=== PATIENT | male | born 1950 | race Caucasian/White ===

== ENCOUNTER 2016-08-15 04:41 | Inpatient (IN) | payer SELFPAY ==
[~2016-08-15] VITALS: Ht 182.9 cm; Wt 94.5 kg
[2016-08-15] VITALS (11 sets, daily range): BP systolic 111–161; BP diastolic 69–94; PULSE 55–64; RESP 16–20; TEMP 96.5–99.1; O2SAT 92–100
[~2016-08-15 04:41] MED LIST: CYCL-36 PO; PRED20 PO; Z.0.NO CURRENT MEDS
[2016-08-15] MEDS ORDERED: HYDROmorphone HCL PF 1 MG/ML VIAL IV PUSH ONE (04:45)
[2016-08-15] MEDS ORDERED: PANTOPRAZOLE SODIUM 40 MG VIAL IV PUSH ONE (04:45)
[2016-08-15] MEDS ORDERED: SODIUM CHLORIDE 0.9% FLUSH 10 ML FLUSH IV FLUSH PRN ×2 (04:45→08:00)
[2016-08-15] MEDS ORDERED: SODIUM CHLOR 0.9% 1000 ML INJ 1,000 ML IV SCH (04:45)
[2016-08-15] MEDS ORDERED: ONDANSETRON HCL 4 MG/2 ML VIAL IV PUSH ONE (04:45)
--- NOTE | 2016-08-15 05:14 | RADHPO ---
EXAM DATE/TIME: 08/15/2016 04:54 [facility] COMPARISON: No previous studies available for comparison. INDICATIONS : Chest pain. MEDICAL HISTORY : None. SURGICAL HISTORY : None. ENCOUNTER: Initial ACUITY: 1 day PAIN SCORE: 7/10 LOCATION: Bilateral chest FINDINGS: A single view of the chest demonstrates the lungs to be symmetrically aerated without evidence of mas s, infiltrate or effusion. The cardiomediastinal contours are unremarkable. Osseous structures are intact. CONCLUSION: Normal examination. Charlie Toth MD on August 15, 2016 at 5:12 Board Certified Radiologist. This report was verified electronically.
[2016-08-15 05:20] LABS: CHLORIDE 105 MEQ/L (98-107); POTASSIUM 3.3 MEQ/L (3.5-5.1); SODIUM (NA) 139 MEQ/L (136-145)
[2016-08-15 05:23] LABS: AUTOMATED NEUTROPHIL # 5.9 TH/MM3 (1.8-7.7); BASOPHIL % 0.5 % (0.0-2.0); EOSINOPHIL # 0.2 TH/MM3 (0-0.4); EOSINOPHIL % 2.4 % (0.0-4.0); HEMATOCRIT 47.8 % (39.0-51.0); HEMO FLAGS DIFF FINAL; LYMPH % 31.3 % (9.0-44.0); LYMPHOCYTE # 3.1 TH/MM3 (1.0-4.8); MEAN CELL VOLUME 92.4 FL (80.0-100.0); MEAN CORPUSCULAR HEMOGLOBIN 30.3 PG (27.0-34.0); MEAN CORPUSCULAR HGB CONC 32.8 % (32.0-36.0); MONO % 6.7 % (0.0-8.0); NEUT % 59.1 % (16.0-70.0); PLATELET COUNT 379 TH/MM3 (150-450); RED BLOOD COUNT 5.17 MIL/MM3 (4.50-5.90); RED CELL DISTRIBUTION WIDTH 13.4 % (11.6-17.2); WHITE BLOOD COUNT 9.9 TH/MM3 (4.0-11.0)
[2016-08-15 05:24] LABS: ANION GAP 7 MEQ/L (5-15); BICARBONATE 26.7 MEQ/L (21.0-32.0)
[2016-08-15 05:25] LABS: BLOOD UREA NITROGEN 15 MG/DL (7-18); MAGNESIUM 2.1 MG/DL (1.5-2.5)
[2016-08-15 05:27] LABS: ALT (GPT) 31 U/L (12-78); AST (GOT) 20 U/L (15-37)
[2016-08-15 05:28] LABS: GLOMERULAR FILTRATION RATE 67 ML/MIN (>89)
[2016-08-15 05:29] LABS: TOTAL BILIRUBIN ADULT 0.4 MG/DL (0.2-1.0)
[2016-08-15 05:30] LABS: ALKALINE PHOSPHATASE 82 U/L (45-117)
--- NOTE | 2016-08-15 06:06 | PD ---
HPI Chief Complaint: Abdominal Pain Time Seen by Provider: 04:45 Travel History International Travel<30 days: No Contact w/Intl Traveler<30days: No Traveled to known affect area: No History of Present Illness HPI 66-year-old male presents to the emergency department for complaint of severe abdominal pain. Patient's had nausea and vomiting with hematemesis and melena. Patient states she's had symptoms like this for some time but tonight it became worse. Patient has not seen a physician in numerous years. Patient denies known history of CAD hypertension dyslipidemia or diabetes. Patient admits to tobacco use. Pain he states is bandlike across the upper abdomen. Patient states overall symptoms have been present for approximately 3 days. Pain became worse tonight. Patient states this duration is longer than his prior episodes. Patient is not able to associate exacerbating or alleviating factors. Patient denies any known dietary indiscretion, well water ingestion, or foreign travel. Patient rates pain 10 over 10 intensity. PFSH Past Medical History Narrative Medical Review of past medical history kidney stones, no surgeries, tobacco use nursing notes reviewed Diminished Hearing: No Kidney Stones: Yes Influenza Vaccination: No Social History Alcohol Use: No Tobacco Use: Yes (2ppd) Substance Use: No Allergies-Medications (Allergen,Severity, Reaction): Coded Allergies: No Known Allergies (Verified , 08/15/16) Reported Meds & Prescriptions Reported Meds & Active Scripts Active Flexeril (Cyclobenzaprine HCl) 10 Mg Tab 10 Mg PO Q8HPRN Deltasone (Prednisone) 20 Mg Tab 20 Mg PO BID Reported No Current Meds (Miscellaneous Medication) Misc Review of Systems Except as stated in HPI: all other systems reviewed are Neg General / Constitutional: No: Fever, Chills HENT: No: Congestion Cardiovascular: No: Chest Pain or Discomfort, Diaphoresis, Syncope, Dyspnea on exertion Respiratory: No: Shortness of Breath Gastrointestinal: Positive: Nausea, Vomiting, Diarrhea, Abdominal Pain, Hematemesis, Hematochezia Genitourinary: No: Dysuria, Flank Pain Musculoskeletal: No: Myalgias, Arthralgias Skin: No Rash Neurologic: No: Weakness, Dizziness, Syncope, Focal Abnormalities, Coordination Problem Psychiatric: No: Anxiety Hematologic/Lymphatic: No: Lymph Node Enlargement Physical Exam Narrative GENERAL: Well-developed well-nourished male in obvious discomfort no respiratory distress; GCS 15 SKIN: Warm and dry. HEAD: Normocephalic. EYES: No scleral icterus. No injection or drainage. NECK: Supple, trachea midline. No JVD or lymphadenopathy. CARDIOVASCULAR: Regular rate and rhythm without murmurs, gallops, or rubs. RESPIRATORY: Breath sounds equal bilaterally. No accessory muscle use. GASTROINTESTINAL: Abdomen soft, right upper quadrant tenderness to palpation without guarding or rebound, nondistended. MUSCULOSKELETAL: No cyanosis, or edema. BACK: Nontender without obvious deformity. No CVA tenderness. Data Data Last Documented VS Vital Signs Date Time Temp Pulse Resp B/P Pulse Ox O2 Delivery O2 Flow Rate FiO2 08/15/16 06:48 59 16 140/79 94 Room Air 08/15/16 05:00 97.6 Orders Complete Blood Count With Diff (08/15/16 04:45) Comprehensive Metabolic Panel (08/15/16 04:45) Lipase (08/15/16 04:45) Lactic Acid (08/15/16 04:45) Prothrombin Time / Inr (Pt) (08/15/16 04:45) Act Partial Throm Time (Ptt) (08/15/16 04:45) Urinalysis - C+S If Indicated (08/15/16 04:45) Ct Abd/Pel W Iv Contrast(Rout) (08/15/16 04:45) Iv Access Insert/Monitor (08/15/16 04:45) Ecg Monitoring (08/15/16 04:45) Oximetry (08/15/16 04:45) Sodium Chloride 0.9% Flush (Ns Flush) (08/15/16 04:45) Electrocardiogram (08/15/16 04:45) Chest, Single Ap (08/15/16 04:45) Ondansetron Inj (Zofran Inj) (08/15/16 04:45) Hydromorphone Pf Inj (Dilaudid Pf Inj) (08/15/16 04:45) Sodium Chlor 0.9% 1000 Ml Inj (Ns 1000 M (08/15/16 04:45) Troponin I (08/15/16 04:45) Magnesium (Mg) (08/15/16 04:45) Pantoprazole Inj (Protonix Inj) (08/15/16 04:45) Type And Screen (08/15/16 04:45) Iohexol 350 Inj (Omnipaque 350 Inj) (08/15/16 06:27) Us Abdomen Gallbladder (08/15/16 ) Piperacil-Tazo 3.375 Gm Premix (Zosyn 3. (08/15/16 07:30) NPO (08/15/16 07:30) Admit Order (Ed Use Only) (08/15/16 ) ^ Saline Lock (08/15/16 07:42) Resp Oxygen Mateusz C Titrat 1-4 L (08/15/16 ) Notify Dr: Other (08/15/16 07:42) Sodium Chloride 0.9% Flush (Ns Flush) (08/15/16 09:00) Sodium Chloride 0.9% Flush (Ns Flush) (08/15/16 07:45) Labs Laboratory Tests Test 08/15/16 08/15/16 04:47 06:00 White Blood Count 9.9 TH/MM3 Red Blood Count 5.17 MIL/MM3 Hemoglobin 15.7 GM/DL Hematocrit 47.8 % Mean Corpuscular Volume 92.4 FL Mean Corpuscular Hemoglobin 30.3 PG Mean Corpuscular Hemoglobin 32.8 % Concent Red Cell Distribution Width 13.4 % Platelet Count 379 TH/MM3 Mean Platelet Volume 8.0 FL Neutrophils (%) (Auto) 59.1 % Lymphocytes (%) (Auto) 31.3 % Monocytes (%) (Auto) 6.7 % Eosinophils (%) (Auto) 2.4 % Basophils (%) (Auto) 0.5 % Neutrophils # (Auto) 5.9 TH/MM3 Lymphocytes # (Auto) 3.1 TH/MM3 Monocytes # (Auto) 0.7 TH/MM3 Eosinophils # (Auto) 0.2 TH/MM3 Basophils # (Auto) 0.0 TH/MM3 CBC Comment DIFF FINAL Differential Comment Prothrombin Time 10.7 SEC Prothromb Time International 1.0 RATIO Ratio Activated Partial 29.4 SEC Thromboplast Time Sodium Level 139 MEQ/L Potassium Level 3.3 MEQ/L Chloride Level 105 MEQ/L Carbon Dioxide Level 26.7 MEQ/L Anion Gap 7 MEQ/L Blood Urea Nitrogen 15 MG/DL Creatinine 1.10 MG/DL Estimat Glomerular Filtration 67 ML/MIN Rate Random Glucose 108 MG/DL Lactic Acid Level 1.5 mmol/L Calcium Level 9.7 MG/DL Magnesium Level 2.1 MG/DL Total Bilirubin 0.4 MG/DL Aspartate Amino Transf 20 U/L (AST/SGOT) Alanine Aminotransferase 31 U/L (ALT/SGPT) Alkaline Phosphatase 82 U/L Troponin I LESS THAN 0.02 NG/ML Total Protein 7.7 GM/DL Albumin 4.0 GM/DL Lipase 124 U/L Urine Color YELLOW Urine Turbidity CLEAR Urine pH 5.5 Urine Specific [place] 1.027 Urine Protein NEG mg/dL Urine Glucose (UA) NEG mg/dL Urine Ketones NEG mg/dL Urine Occult Blood NEG Urine Nitrite NEG Urine Bilirubin NEG Urine Leukocyte Esterase NEG Urine RBC 0-3 /hpf Urine WBC 0-2 /hpf Urine Squamous Epithelial 0-5 /hpf Cells Urine Amorphous Sediment MOD Urine Mucus MOD /lpf Microscopic Urinalysis Comment CULT NOT INDICATED MDM Medical Decision Making Medical Screen Exam Complete: Yes Emergency Medical Condition: Yes Medical Record Reviewed: Yes Interpretation(s) CBC & BMP Diagram 08/15/16 04:47 Vital Signs Date Time Temp Pulse Resp B/P Pulse Ox O2 Delivery O2 Flow Rate FiO2 08/15/16 05:37 18 08/15/16 05:13 64 20 100 Room Air 08/15/16 05:00 97.6 63 20 161/81 99 08/15/16 04:55 20 08/15/16 04:54 97.6 63 20 161/80 99 Troponin I less than 0.02, not elevated Lactic acid 1.5, not elevated Differential Diagnosis Abdominal pain, ACS, ME, pancreatitis, biliary colic, gastroenteritis, ischemic colitis, abdominal ache whenever aneurysm, diverticulitis, renal colic Narrative Course IV access obtained specimens collected and sent for resulting EKG performed rate [address] elevation or injury pattern change noted; patient administered maintenance IV fluids Zofran 4 mg IV and Dilaudid 1 mg IV Lab values resulted lactic acid is 1.5, not elevated CBC is automated differential is normal metabolic panel was remarkable for mild hypokalemia of 3.3 but LFTs and lipase values are normal range as was renal function; troponin I is less than 0.02 At 6 AM patient has not produced urine and CT abdomen and pelvis is pending Rectal exam performed by nv normal sphincter tone streaks of red blood on exam glove and multilobulated mass in the rectal vault; Hemoccult testing is positive for blood CT abdomen and pelvis reveals no acute intra-abdominal or pelvic abnormality other than some mild gallbladder wall thickening without stranding or evidence of ductal dilatation or obstruction and some diverticulosis; patient returns from CT and on repeat assessment has some mild tenderness to the right upper quadrant will order ultrasound to confirm possible stone or ductal dilatation versus biliary colic also concerning for this patient is following up blood as well as red blood per rectum and on rectal exam does have Hemoccult-positive stool/mucus as well as what appears to be a friable lobulated mass in the rectal vault requiring further evaluation. Patient is aware of plan to admit the patient's case has been discussed with on- call [facility] for OBs admission [facility] Point of Care Internal Pos. & Neg. Controls: Passed Fecal Specimen Occult Blood: Positive Physician Communication Physician Communication discussed with Dr Vanegas --23 h obs Diagnosis Primary Impression: Abdominal pain Qualified Code: R10.10 - Pain of upper abdomen Additional Impressions: Rectal mass GI bleed Qualified Code: K92.2 - Gastrointestinal hemorrhage, unspecified gastrointestinal hemorrhage type Admitting Information Admitting Physician Requests: Observation Elen Thomas MD Aug 15, 2016 06:06
[2016-08-15 06:07] LABS: APTT (PATIENT) 29.4 SEC (24.3-30.1); PROTHROMBIN TIME - PATIENT 10.7 SEC (9.8-11.6)
[2016-08-15 06:19] LABS: BLOOD, URINE NEG (NEG); GLUCOSE,URINE NEG (NEG); KETONE, URINE NEG (NEG); NITRITE,URINE NEG (NEG); PH, URINE 5.5 (5.0-8.5)
[2016-08-15] MEDS ORDERED: IOHEXOL 350 MG/ML 10 ML VIAL (for RAD DIAG) IV ONE (06:27)
[2016-08-15 06:31] LABS: URINE COLOR YELLOW (YELLW/STRAW)
[2016-08-15 06:32] LABS: MUCUS URINE MOD /lpf (OCC)
[2016-08-15 06:34] LABS: RBC, URINE 0-3 /hpf (0-3); SQUAMOUS EPITHELIAL CELL URINE 0-5 /hpf (0-5)
[2016-08-15 06:35] LABS: COMMENT (UR) CULT NOT INDICATED; CULTURE IF INDICATED CULT NOT INDICATED; WBC, URINE 0-2 /hpf (0-5)
--- NOTE | 2016-08-15 06:38 | RADHPO ---
EXAM DATE/TIME: 08/15/2016 06:07 [facility] COMPARISON: No previous studies available for comparison. INDICATIONS : Abdominal pain for three days. Evaluate for rectal mass. IV CONTRAST: 100 cc Omnipaque 350 (iohexol) IV ORAL CONTRAST: No oral contrast ingested. RADIATION DOSE: 16.60 CTDIvol (mGy) MEDICAL HISTORY : Renal calculi. SURGICAL HISTORY : None. ENCOUNTER: Initial ACUITY: 3 days PAIN SCALE: 10/10 LOCATION: Bilateral upper quadrant TECHNIQUE: Volumetric scanning of the abdomen and pelvis was performed. Using automated exposure control and ad justment of the mA and/or kV according to patient size, radiation dose was kept as low as reasonably achievable to obtain optimal diagnostic quality images. FINDINGS: LOWER LUNGS: Mild atelectasis both lower lobes posteriorly. LIVER: Homogeneous density without lesion. There is no dilation of the biliary tree. No calcified gallston es but the wall the gallbladder is borderline thickened. SPLEEN: Normal size without lesion. PANCREAS: Within normal limits. KIDNEYS: Normal in size and shape. There is no mass, or hydronephrosis. Numerous renal stones are identified ADRENAL GLANDS: Within normal limits. VASCULAR: There is no aortic aneurysm. BOWEL/MESENTERY: The stomach, small bowel, and colon demonstrate no acute abnormality. There is no free intraperitone al air or fluid. Diverticulosis of the colon ABDOMINAL WALL: Within normal limits. In the left posterior lateral flank there is a low density collection within th e subcutaneous fat measuring 3.3 x 2.4 cm likely large sebaceous cyst RETROPERITONEUM: There is no lymphadenopathy. BLADDER: No wall thickening or mass. REPRODUCTIVE: Within normal limits. INGUINAL: There is no lymphadenopathy or hernia. MUSCULOSKELETAL: Within normal limits for patient age. CONCLUSION: Stones within each kidney. Diverticulosis of the colon. Some gallbladder wall thickening without any definite signs of surrounding inflammation. Charlie Toth MD on August 15, 2016 at 6:34 Board Certified Radiologist. This report was verified electronically.
[2016-08-15] MEDS ORDERED: PIPERACIL-TAZO 3.375 GM PREMIX 50 ML IV ONE (07:30)
[2016-08-15] MEDS ORDERED: SODIUM CHLORIDE 0.9% FLUSH 10 ML FLUSH IVF PRN (07:45)
[2016-08-15] MEDS ORDERED: BISACODYL 10 MG SUPP RECTAL PRN (08:00)
[2016-08-15] MEDS ORDERED: SODIUM CHLOR 0.45% 1000 ML INJ 1,000 ML IV SCH (08:00)
[2016-08-15] MEDS ORDERED: MAGNESIUM HYDROXIDE SUSP 30 ML CUP PO PRN (08:00)
[2016-08-15] MEDS ORDERED: LACTULOSE SYRUP 20 GM/30 ML CUP PO PRN (08:00)
[2016-08-15] MEDS ORDERED: NALOXONE HCL 0.4 MG/ML AMP IV PRN ×2 (08:00→10:00)
[2016-08-15] MEDS ORDERED: SENNOSIDES 8.6 MG TAB PO PRN (08:00)
[2016-08-15] MEDS: SODIUM CHLORIDE 0.9% FLUSH 10 ML FLUSH IV FLUSH SCH ×2 (08:03→20:24)
[2016-08-15] MEDS: PANTOPRAZOLE SODIUM 40 MG VIAL IV PUSH SCH (08:46)
[2016-08-15] MEDS ORDERED: SODIUM CHLORIDE 0.9% FLUSH 10 ML FLUSH IV FLUSH SCH (09:00)
[2016-08-15] MEDS ORDERED: DOCUSATE SODIUM 50 MG/SENNA 8.6 MG TAB PO SCH (09:00)
--- NOTE | 2016-08-15 09:35 | RADHPO ---
EXAM DATE/TIME: 08/15/2016 08:04 [facility] COMPARISON: CT ABDOMEN & PELVIS W CONTRAST, August 15, 2016, 6:07. INDICATIONS : Right upper quadrant pain. MEDICAL HISTORY : Renal calculi. Right upper quadrant pain. SURGICAL HISTORY : None. ENCOUNTER: Initial ACUITY: 1 day PAIN SCORE: 6/10 LOCATION: Right upper quadrant MEASUREMENTS: LIVER: 17.8 cm length COMMON DUCT: 7 mm RIGHT KIDNEY: 12.0 x 5.9 x 6.6 cm FINDINGS: LIVER: Diffusely increased hepatic echogenicity without evidence for volume loss or focal mass. COMMON DUCT: No intraluminal mass or stone visualized. GALLBLADDER: There are multiple layering gallstones in the gallbladder. There is a 1.7 x 2.0 x 1.5 cm apparent adherent gallstone near the fundus. There is diffuse mild gallbladder wall thicken ing measuring up to 3 mm. There is minimal pericholecystic fluid. No sonographic Rollins's sign. PANCREAS: The visualized portions are within normal limits. RIGHT KIDNEY: Small nonobstructing renal calculus in the inferior pole the right kidney is n ot demonstrated on ultrasound. Right kidney appears unremarkable without evidence for hydronephrosis or focal mass. CONCLUSION: 1. Cholelithiasis with mild diffuse gall bladder wall thickening and mild pericholecystic fluid. 1.7 x 2.0 x 1.5 cm probably adherent stone near the fundus of the gallbladder. Gallbladder is not signifi cantly distended and there is no sonographic Rollins's sign. Findings are most consistent with subacut e/chronic cholecystitis. Recommend HIDA scan if there is concern regarding cystic duct patency and ac heri cholecystitis. 2. Diffusely increased hepatic echogenicity without evidence for volume loss most consistent with hep atic steatosis. 3. Small nonobstructing inferior pole right renal calculus not demonstrated on ultrasound. Ronny Lau MD on August 15, 2016 at 9:16 Board Certified Radiologist. This report was verified electronically.
[2016-08-15] MEDS ORDERED: ACETAMINOPHEN/HYDROcodone 325 MG/7.5 MG TAB PO PRN (10:00)
[2016-08-15] MEDS ORDERED: ACETAMINOPHEN/HYDROcodone 325 MG/5 MG TAB PO PRN (10:00)
[2016-08-15] MEDS: MORPHINE SULFATE 4 MG/ML INJ IV PRN ×3 (10:09→20:22)
--- NOTE | 2016-08-15 14:39 | HHI.HP ---
[facility] No Primary Care Physician Admission Diagnosis Abdominal pain; rectal mass; gibleed Diagnoses: Travel History International Travel<30 Days: No Contact w/Intl Traveler <30 Da: No Traveled to Known Affected Are: No History of Present Illness 66-year-old male with history of chronic tobaccoism, chronic low back pain on Aleve 2 tablets in the morning, 1 tablet at night, who presents with constant sharp epigastric pain radiating to bilateral flanks since 30 minutes past midnight this morning. He denies any fevers or chills, however has had one episode of light blood vomiting last night. He also reports black tarry stools for months, however he says this may be secondary to the Pepto-Bismol he takes. He does report chronic acid reflux and epigastric pain for which he takes Prilosec, Pepto-Bismol as needed. He reports that abdominal pain has improved slightly. He reports that nausea has resolved. Review of Systems Patient has chronic smoker's cough every morning. Otherwise Performed and negative except for history of present illness and past medical history. Past Family Social History Past Medical History History of chronic low back pain. She takes Aleve 2 tablets in the morning, 1 tablet night. Long History of reflux symptoms. Patient takes a Prilosec daily Past Surgical History No history of surgery. Allergies: Coded Allergies: No Known Allergies (Verified , 08/15/16) Family History Reviewed with patient and found to be currently noncontributory. Social History Patient has smoked 2 packs per day for the past 51 years, however previously smoked 4 packs per day, cut down to 2 packs per day recently. Nondrinker. Denies illicit drugs. Physical Exam Vital Signs Vital Signs Date Time Temp Pulse Resp B/P Pulse Ox O2 Delivery O2 Flow Rate FiO2 08/15/16 12:11 57 18 142/82 97 Room Air 08/15/16 12:00 96.5 59 20 142/94 95 08/15/16 10:58 55 18 111/69 92 Room Air 08/15/16 08:00 57 18 139/85 92 Room Air 08/15/16 06:48 59 16 140/79 94 Room Air 08/15/16 05:37 18 08/15/16 05:13 64 20 100 Room Air 08/15/16 05:00 97.6 63 20 161/81 99 08/15/16 04:55 20 08/15/16 04:54 97.6 63 20 161/80 99 Physical Exam GENERAL: This is a well-nourished, well-developed patient, in no apparent distress. Alert and oriented 3. SKIN: No rashes, ecchymoses or lesions. Cool and dry. HEAD: Atraumatic. Normocephalic. No temporal or scalp tenderness. EYES: Pupils equal round and reactive. Extraocular motions intact. No scleral icterus. No injection or drainage. ENT: Nose without bleeding, purulent drainage or septal hematoma. Throat without erythema, tonsillar hypertrophy or exudate. Uvula midline. Airway patent. NECK: Trachea midline. No JVD or lymphadenopathy. Supple, nontender, no meningeal signs. CARDIOVASCULAR: Regular rate and rhythm without murmurs, gallops, or rubs. RESPIRATORY: Clear to auscultation. Breath sounds equal bilaterally. No wheezes , rales, or rhonchi. GASTROINTESTINAL: Abdomen soft, distended. No hepato-splenomegaly, or palpable masses. Tenderness to moderate palpation in the epigastrium. No rebound or guarding. MUSCULOSKELETAL: Extremities without clubbing, cyanosis, or edema. No joint tenderness, effusion, or edema noted. No calf tenderness. Negative Homans sign bilaterally. NEUROLOGICAL: Awake and alert. Cranial nerves II through XII intact. Motor and sensory grossly within normal limits. Five out of 5 muscle strength in all muscle groups. Normal speech. Laboratory Laboratory Tests Test 08/15/16 08/15/16 08/15/16 04:47 06:00 09:44 White Blood Count 9.9 Red Blood Count 5.17 Hemoglobin 15.7 14.7 Hematocrit 47.8 Mean Corpuscular Volume 92.4 Mean Corpuscular Hemoglobin 30.3 Mean Corpuscular Hemoglobin 32.8 Concent Red Cell Distribution Width 13.4 Platelet Count 379 Mean Platelet Volume 8.0 Neutrophils (%) (Auto) 59.1 Lymphocytes (%) (Auto) 31.3 Monocytes (%) (Auto) 6.7 Eosinophils (%) (Auto) 2.4 Basophils (%) (Auto) 0.5 Neutrophils # (Auto) 5.9 Lymphocytes # (Auto) 3.1 Monocytes # (Auto) 0.7 Eosinophils # (Auto) 0.2 Basophils # (Auto) 0.0 CBC Comment DIFF FINAL Differential Comment Prothrombin Time 10.7 Prothromb Time International 1.0 Ratio Activated Partial 29.4 Thromboplast Time Sodium Level 139 Potassium Level 3.3 Chloride Level 105 Carbon Dioxide Level 26.7 Anion Gap 7 Blood Urea Nitrogen 15 Creatinine 1.10 Estimat Glomerular Filtration 67 Rate Random Glucose 108 Lactic Acid Level 1.5 Calcium Level 9.7 Magnesium Level 2.1 Total Bilirubin 0.4 Aspartate Amino Transf 20 (AST/SGOT) Alanine Aminotransferase 31 (ALT/SGPT) Alkaline Phosphatase 82 Troponin I LESS THAN 0.02 Total Protein 7.7 Albumin 4.0 Lipase 124 Blood Type A POSITIVE Antibody Screen NEGATIVE Blood Bank Comment Urine Color YELLOW Urine Turbidity CLEAR Urine pH 5.5 Urine Specific [place] 1.027 Urine Protein NEG Urine Glucose (UA) NEG Urine Ketones NEG Urine Occult Blood NEG Urine Nitrite NEG Urine Bilirubin NEG Urine Leukocyte Esterase NEG Urine RBC 0-3 Urine WBC 0-2 Urine Squamous Epithelial 0-5 Cells Urine Amorphous Sediment MOD Urine Mucus MOD Microscopic Urinalysis Comment CULT NOT INDICATED Result Diagram: 08/15/16 0944 08/15/16446 Imaging Last Impressions Chest X-Ray 08/15/16444 Signed Impressions: Service Date/Time: Monday, August 15, 2016 04:54 - CONCLUSION: Normal examination. Charlie Toth MD Abdomen/Pelvis CT 08/15/165 Signed Impressions: Service Date/Time: Monday, August 15, 2016 06:07 - CONCLUSION: Stones within each kidney. Diverticulosis of the colon. Some gallbladder wall thickening without any definite signs of surrounding inflammation. Charlie Toth MD Gall Bladder Ultrasound 08/15/16 0000 Signed Impressions: Service Date/Time: Monday, August 15, 2016 08:04 - CONCLUSION: 1. Cholelithiasis with mild diffuse gall bladder wall thickening and mild pericholecystic fluid. 1.7 x 2.0 x 1.5 cm probably adherent stone near the fundus of the gallbladder. Gallbladder is not significantly distended and there is no sonographic Rollins' s sign. Findings are most consistent with subacute/chronic cholecystitis. Recommend HIDA scan if there is concern regarding cystic duct patency and acute cholecystitis. 2. Diffusely increased hepatic echogenicity without evidence for volume loss most consistent with hepatic steatosis. 3. Small nonobstructing inferior pole right renal calculus not demonstrated on ultrasound. Ronny Lau MD Assessment and Plan Assessment and Plan //Possible peptic ulcer. Acute //Possible cholecystitis. Acute. //Hematemesis -Patient with NSAID use at home. -Nothing by mouth except meds. -IV PPI twice a day. -IV fluids for maintenance Place NG tube to low intermittent suction Continue to monitor hemoglobin -Narcotics for pain control. Consult gastroenterology. //Possible cholecystitis Call bladder wall thickening on a CT abdomen. -Continue antibiotics. GI consult pending //Chronic tobaccoism. Roughly 150 pack year history. With chronic smoker's cough. Cessation counseling provided. Cessation strongly advised. //Hypokalemia. Potassium 3.3. Likely secondary to nausea/vomiting. Replaced. Continue to monitor //Prophylaxis. SCDs. Hold and coagulation setting of possible GI bleed. Code Status full Code Discussed Condition With Patient, nurse, ED physician, family at bedside. Physician Certification 2 Midnight Certification Type: Admission for Inpatient Services Order for Inpatient Services The services are ordered in accordance with Medicare regulations or non- Medicare payer requirements, as applicable. In the case of services not specified as inpatient-only, they are appropriately provided as inpatient services in accordance with the 2-midnight benchmark. Estimated LOS (days): 2 days is the estimated time the patient will need to remain in the hospital, assuming treatment plan goals are met and no additional complications. Post-Hospital Plan: Not yet determined Savage Vanegas MD Aug 15, 2016 14:38
[2016-08-15] MEDS: POTASSIUM CHLOR 10 MEQ PREMIX 100 ML IV SCH ×3 (16:00→17:51)
--- NOTE | 2016-08-15 16:23 | HHI.GIFU ---
Objective Vitals I&O Vital Signs Date Time Temp Pulse Resp B/P Pulse Ox O2 Delivery O2 Flow Rate FiO2 08/15/16 12:11 57 18 142/82 97 Room Air 08/15/16 12:00 96.5 59 20 142/94 95 08/15/16 10:58 55 18 111/69 92 Room Air 08/15/16 08:00 57 18 139/85 92 Room Air 08/15/16 06:48 59 16 140/79 94 Room Air 08/15/16 05:37 18 08/15/16 05:13 64 20 100 Room Air 08/15/16 05:00 97.6 63 20 161/81 99 08/15/16 04:55 20 08/15/16 04:54 97.6 63 20 161/80 99 I/O 08/14/16 08/14/16 08/14/16 08/15/16 08/15/16 08/15/16 07:00 15:00 23:00 07:00 15:00 23:00 Intake Total 1000 ml Balance 1000 ml Intake IV Total 1000 ml Laboratory Laboratory Tests Test 08/15/16 08/15/16 08/15/16 04:47 06:00 09:44 White Blood Count 9.9 Red Blood Count 5.17 Hemoglobin 15.7 14.7 Hematocrit 47.8 Mean Corpuscular Volume 92.4 Mean Corpuscular Hemoglobin 30.3 Mean Corpuscular Hemoglobin 32.8 Concent Red Cell Distribution Width 13.4 Platelet Count 379 Mean Platelet Volume 8.0 Neutrophils (%) (Auto) 59.1 Lymphocytes (%) (Auto) 31.3 Monocytes (%) (Auto) 6.7 Eosinophils (%) (Auto) 2.4 Basophils (%) (Auto) 0.5 Neutrophils # (Auto) 5.9 Lymphocytes # (Auto) 3.1 Monocytes # (Auto) 0.7 Eosinophils # (Auto) 0.2 Basophils # (Auto) 0.0 CBC Comment DIFF FINAL Differential Comment Prothrombin Time 10.7 Prothromb Time International 1.0 Ratio Activated Partial 29.4 Thromboplast Time Sodium Level 139 Potassium Level 3.3 Chloride Level 105 Carbon Dioxide Level 26.7 Anion Gap 7 Blood Urea Nitrogen 15 Creatinine 1.10 Estimat Glomerular Filtration 67 Rate Random Glucose 108 Lactic Acid Level 1.5 Calcium Level 9.7 Magnesium Level 2.1 Total Bilirubin 0.4 Aspartate Amino Transf 20 (AST/SGOT) Alanine Aminotransferase 31 (ALT/SGPT) Alkaline Phosphatase 82 Troponin I LESS THAN 0.02 Total Protein 7.7 Albumin 4.0 Lipase 124 Blood Type A POSITIVE Antibody Screen NEGATIVE Blood Bank Comment Urine Color YELLOW Urine Turbidity CLEAR Urine pH 5.5 Urine Specific [place] 1.027 Urine Protein NEG Urine Glucose (UA) NEG Urine Ketones NEG Urine Occult Blood NEG Urine Nitrite NEG Urine Bilirubin NEG Urine Leukocyte Esterase NEG Urine RBC 0-3 Urine WBC 0-2 Urine Squamous Epithelial 0-5 Cells Urine Amorphous Sediment MOD Urine Mucus MOD Microscopic Urinalysis Comment CULT NOT INDICATED Physical Exam HEENT: Pupils round and reactive to light; normocephalic; atraumatic; no jaundice. Throat is clear. NECK: Neck is supple, no JVD, no lymphadenopathy. CHEST: Chest is clear to auscultation and percussion. CARDIAC: Regular rate and rhythm with no murmur gallop or rubs. ABDOMEN: Soft, nondistended, nontender; no hepatosplenomegaly; bowel sounds are present in all four quadrants. EXTREMITIES: No clubbing, cyanosis, or edema. SKIN: Normal; no rash; no jaundice. COPRA PROCESSOR: No focal deficits; alert and oriented times three. Assessment and Plan Physician Comments This is an addendum to dictated gi consult. ? rectal mass described by er doctor on rectal exam. Colonoscopy once pt able to do bowel prep. Discussed with Dr. Vanegas. Isai Dixon MD Aug 15, 2016 16:23
[2016-08-15] MEDS: PIPERACIL-TAZO 3.375 GM PREMIX 50 ML IV SCH (17:51)
--- NOTE | 2016-08-15 18:35 | MB ---
cc: EMANUEL DIXON M.D.,LUIS Nunes MD DATE OF CONSULTATION 08/15/[address] Vanegas REASON FOR CONSULTATION Melena, abdominal pain, cholecystitis. HISTORY OF THE PRESENT ILLNESS Mr. Lam is a 66-year-old gentleman basically presents with severe abdominal pain with nausea with one episode of vomiting with hematemesis. He has chronic acid reflux and epigastric discomfort for which he takes Pepto-Bismol and Prilosec as needed. Currently he is having no active GI bleeding. He has an NG tube with clear material. There is no ongoing hematemesis or hematochezia. REVIEW OF SYSTEMS No hematemesis or hematochezia. PAST MEDICAL HISTORY 1. Chronic back pain, takes Aleve. 2. Reflux disease. PAST SURGICAL HISTORY None given. ALLERGIES NONE DOCUMENTED. FAMILY HISTORY Noncontributory. SOCIAL HISTORY The patient is a smoker. No alcohol. PHYSICAL EXAMINATION GENERAL: Reveals a well-nourished man in some distress. HEAD AND NECK: Examination anicteric sclerae. CHEST: Bilateral air entry with rales. ABDOMEN: Soft, tenderness with guarding in the right upper quadrant. CENTRAL NERVOUS SYSTEM: Exam is nonfocal. RECTAL: Exam deferred at this time. LABORATORY DATA Labs reveal white cell count of 9.9, hemoglobin 14.7. Liver function tests are normal. Lipase is 124. IMAGING Gallbladder ultrasound shows cholelithiasis with mild thickening of the gallbladder wall, anterior stone in the gallbladder fundus, fatty liver. CT scan shows a stone in the kidney, diverticulosis and mild gallbladder wall thickening. IMPRESSION Cholelithiasis with cholecystitis. Peptic ulcer disease needs to be ruled out. RECOMMENDATIONS HIDA scan has been ordered. Endoscopy is planned for tomorrow. General surgery consult has been requested. NG tube to low intermittent suctioning. Aggressive IV fluid rehydration. N.p.o. at this time. This has been discussed with Dr. Vanegas. We will follow with you. Thank you for this referral. Emanuel Dixon MD HZ/NICOLE /4:21 PM /6:29 PM
--- NOTE | 2016-08-15 19:33 | MB ---
cc: DAILY CARLOS M.D. DATE OF CONSULTATION 08/15/2016 REASON FOR CONSULTATION Acute cholecystitis, cholelithiasis, abdominal pain. HISTORY OF THE PRESENT ILLNESS This is a 66-year-old gentleman who has had on and off pain in his right upper quadrant. He had more severe pain. He came to the emergency room. He had was thought to be an episode of hematemesis. Pain became worse, it was localized in the right upper quadrant. He had some tightness in his abdomen as well. He rated it 10/10 on the pain scale. He was admitted to the hospital after ultrasound and CT scan showed cholecystitis, cholelithiasis. On physical examination according to the ER physician he has a rectal mass as well that had some blood. Surgery was consulted. PAST MEDICAL HISTORY Kidney stones in the past. No surgery on his abdomen. SOCIAL HISTORY He does smoke. He has been smoking two packs a day. ALLERGIES None. MEDICATIONS Include: 1. Flexeril. Prednisone for his chronic back pain that he has. REVIEW OF SYSTEMS Just abdominal pain. No chest pain. With nausea and vomiting as well. He points to the right upper quadrant where his discomfort is located. PHYSICAL EXAMINATION GENERAL: He has an NG tube in. He has mild distress. He is alert and oriented times three. Concerned with his medical condition. NECK: Supple. CHEST: Clear. HEART: Regular rate. ABDOMEN: Exquisite tenderness to the right upper quadrant. Positive Rollins's. No umbilical hernia is noted. No other masses are appreciated but he is fairly tender mainly in the right upper quadrant. LABORATORY DATA He had a white count 9. H&H of 15 and 47. It is rechecked this morning with his hemoglobin is stable at 14.7. Chemistry shows glucose 108. LFTs all normal. Lipase 124. Coags normal. Urinalysis is clean. IMAGING CT scan of the abdomen which showed mild diverticulosis, stones in the kidney and gallbladder wall thickening. Ultrasound of the gallbladder which showed subacute and acute cholecystitis. Fluid around the gallbladder and a 1.7 cm stone. Talked to Dr. Dixon, the avionics systems engineer who saw him. He was planning on scoping him because of the history of hematemesis and also the reported mass in the rectal vault documented by the ER physician. ASSESSMENT A 66-year-old gentleman who has classic signs and symptomatology consistent with biliary colic, acute cholecystitis with positive Rollins's sign. needs colonoscopy and egd later PLAN At this time I talked to Dr. Dixon. I think his pending issue is his acute cholecystitis. He is fairly symptomatic. We will plan laparoscopic cholecystectomy, possible open in the morning or as soon as time can be available which may be in the afternoon tomorrow. Further workup can then proceed for his suspected hematemesis and questionable rectal mass. I think his most pertinent issue at this time is acute cholecystitis. This was explained to the patient and he appeared to be understand. I discussed in detail laparoscopic cholecystectomy, possible open. He appeared to understand. Daily Carlos MD JDB/KK /4:54 PM /7:13 PM YOKASTA
[2016-08-15] MEDS: ONDANSETRON HCL 4 MG/2 ML VIAL IV PUSH PRN (20:22)
--- NOTE | 2016-08-15 21:49 | EKG ---
Date Performed: 08/15/2016 Time Performed: 04:39:26 PTAGE: 66 years EKG: Sinus rhythm . Septal T wave changes are nonspecific Since previous tracing, no significant change noted [place] e ECG PREVIOUS TRACING : 07/27/2001 20.38 DOCTOR: Billy Crowley Interpretating Date/Time 08/15/2016 21:47:46
[2016-08-16] VITALS (7 sets, daily range): BP systolic 101–151; BP diastolic 73–95; PULSE 68–110; RESP 20; TEMP 97–98.7; O2SAT 89–94
[2016-08-16] MEDS: ONDANSETRON HCL 4 MG/2 ML VIAL IV PUSH PRN (01:27)
[2016-08-16] MEDS: PIPERACIL-TAZO 3.375 GM PREMIX 50 ML IV SCH ×3 (01:28→16:00)
[2016-08-16] MEDS: MORPHINE SULFATE 4 MG/ML INJ IV PRN ×4 (01:28→11:52)
[2016-08-16 05:52] LABS: AUTOMATED NEUTROPHIL # 10.7 TH/MM3 (1.8-7.7); BASOPHIL # 0.1 TH/MM3 (0-0.2); BASOPHIL % 0.4 % (0.0-2.0); EOSINOPHIL # 0.1 TH/MM3 (0-0.4); EOSINOPHIL % 0.6 % (0.0-4.0); HEMATOCRIT 46.8 % (39.0-51.0); HEMO FLAGS DIFF FINAL; LYMPH % 12.8 % (9.0-44.0); LYMPHOCYTE # 1.7 TH/MM3 (1.0-4.8); MEAN CELL VOLUME 91.6 FL (80.0-100.0); MEAN CORPUSCULAR HGB CONC 32.8 % (32.0-36.0); MONO % 7.4 % (0.0-8.0); NEUT % 78.8 % (16.0-70.0); PLATELET COUNT 352 TH/MM3 (150-450); RED BLOOD COUNT 5.11 MIL/MM3 (4.50-5.90); RED CELL DISTRIBUTION WIDTH 12.9 % (11.6-17.2); WHITE BLOOD COUNT 13.6 TH/MM3 (4.0-11.0)
[2016-08-16 06:17] LABS: CHLORIDE 102 MEQ/L (98-107); POTASSIUM 3.6 MEQ/L (3.5-5.1); SODIUM (NA) 136 MEQ/L (136-145)
[2016-08-16 06:52] LABS: ALKALINE PHOSPHATASE 75 U/L (45-117); ALT (GPT) 28 U/L (12-78); ANION GAP 9 MEQ/L (5-15); AST (GOT) 21 U/L (15-37); BICARBONATE 25.5 MEQ/L (21.0-32.0); BLOOD UREA NITROGEN 7 MG/DL (7-18); GLOMERULAR FILTRATION RATE 95 ML/MIN (>89); TOTAL BILIRUBIN ADULT 0.9 MG/DL (0.2-1.0)
[2016-08-16] MEDS: 1/2 NS + KCL 20 MEQ INJ 1,000 ML IV SCH ×2 (06:52→20:16)
[2016-08-16] MEDS ORDERED: 1/2 NS + KCL 20 MEQ INJ 1,000 ML IV SCH (08:00)
[2016-08-16] MEDS: SODIUM CHLORIDE 0.9% FLUSH 10 ML FLUSH IV FLUSH SCH (08:31)
[2016-08-16] MEDS: PANTOPRAZOLE SODIUM 40 MG VIAL IV PUSH SCH (08:31)
[2016-08-16] MEDS ORDERED: PROPOFOL 200 MG/20 ML AMP IV ONE (13:26)
[2016-08-16] MEDS ORDERED: ONDANSETRON HCL 4 MG/2 ML VIAL IV PUSH ONE (13:26)
[2016-08-16] MEDS ORDERED: MORPHINE SULFATE 4 MG/ML INJ IV ONE (13:27)
[2016-08-16] MEDS ORDERED: BUPIVACAINE/EPINEPHRINE 0.25% PF 30 ML VIAL OTHER ONE (13:29)
[2016-08-16] MEDS ORDERED: MIDAZOLAM HCL 2 MG/2 ML VIAL ONE (13:47)
[2016-08-16] MEDS ORDERED: ACETAMINOPHEN 1000 MG/100 ML VIAL IV ONE (15:18)
--- NOTE | 2016-08-16 15:26 | HHI.PR ---
cc: Abe Carlos MD Immediate Post Op Note Procedure Date: Aug 16, 2016 Pre Op Diagnosis: (1) Abdominal pain (2) Cholelithiasis (3) Acute cholecystitis Post Op Diagnosis: (1) Abdominal pain (2) Acute cholecystitis (3) Cholelithiasis Surgeon: Abe Carlos Decision Unit Rn(s): Referral record Procedure: Laparoscopic cholecystectomy Findings: Acutely inflamed gallbladder Numerous gallstones Friable gallbladder Complications: None Specimen(s) removed: Gallbladder and stones Estimated blood loss: 25 cc Anesthesia: General Drains: None IVF Patient to: PACU Patient Condition: Good Implant/Devices: SEE IMPLANT LOG (if applicable) Date/Time of Procedure: SEE SURGICAL CARE RECORD Abe Carlos MD Aug 16, 2016 15:26
[2016-08-16] MEDS ORDERED: ACETAMINOPHEN 325 MG TAB PO PRN (15:30)
[2016-08-16] MEDS ORDERED: Post-op Orders (for Pharmacy) MISC XX ONE (15:30)
[2016-08-16] MEDS ORDERED: ONDANSETRON HCL 4 MG/2 ML VIAL IV PRN (15:30)
--- NOTE | 2016-08-16 16:32 | HHI.PR ---
Subjective Remarks Postop lap cholecystectomy. Patient seen in postop. Says he feels well. Denies any pain. Denies any chest pain or shortness of breath. Denies any nausea or vomiting. Objective Vital Signs Date Time Temp Pulse Resp B/P Pulse Ox O2 Delivery O2 Flow Rate FiO2 08/16/16 15:50 95 16 115/73 90 08/16/16 15:35 92 16 102/79 96 08/16/16 15:32 99.0 102 14 106/67 89 Simple Mask 9 08/16/16 12:00 97.8 110 20 101/74 93 08/16/16 08:00 98.7 93 20 134/87 94 08/16/16 08:00 94 Nasal Cannula 2.00 08/16/16 04:00 97.8 100 20 151/95 89 08/16/16 00:00 98.0 68 20 151/94 94 08/15/16 20:00 99.1 63 20 152/93 95 08/15/16 19:22 95 Nasal Cannula 2.00 08/15/16 16:50 94 Nasal Cannula 2.00 I/O 08/15/16 08/15/16 08/15/16 08/16/16 08/16/16 08/16/16 07:00 15:00 23:00 07:00 15:00 23:00 Intake Total 1000 ml 0 ml 900 ml 900 ml Output Total 300 ml Balance 1000 ml -300 ml 900 ml 900 ml Intake Oral 0 ml 0 ml IV Total 1000 ml 900 ml Other 900 ml Output Emesis 300 ml # Voids 2 Result Diagram: 08/16/16 0825 08/16/16 0520 Imaging Last Impressions Chest X-Ray 08/15/16444 Signed Impressions: Service Date/Time: Monday, August 15, 2016 04:54 - CONCLUSION: Normal examination. Charlie Toth MD Abdomen/Pelvis CT 08/15/160 Signed Impressions: Service Date/Time: Monday, August 15, 2016 06:07 - CONCLUSION: Stones within each kidney. Diverticulosis of the colon. Some gallbladder wall thickening without any definite signs of surrounding inflammation. Charlie Toth MD Gall Bladder Ultrasound 08/15/16 0000 Signed Impressions: Service Date/Time: Monday, August 15, 2016 08:04 - CONCLUSION: 1. Cholelithiasis with mild diffuse gall bladder wall thickening and mild pericholecystic fluid. 1.7 x 2.0 x 1.5 cm probably adherent stone near the fundus of the gallbladder. Gallbladder is not significantly distended and there is no sonographic Rollins' s sign. Findings are most consistent with subacute/chronic cholecystitis. Recommend HIDA scan if there is concern regarding cystic duct patency and acute cholecystitis. 2. Diffusely increased hepatic echogenicity without evidence for volume loss most consistent with hepatic steatosis. 3. Small nonobstructing inferior pole right renal calculus not demonstrated on ultrasound. Ronny Lau MD Objective Remarks GENERAL: sitting up in postoperative care unit. Somnolent. Oriented to place and year. Moving all extremities. SKIN: Warm and dry. HEAD: Normocephalic. EYES: No scleral icterus. No injection or drainage. NECK: Supple, trachea midline. No JVD. CARDIOVASCULAR: Regular rate and rhythm without murmurs, gallops, or rubs. RESPIRATORY: Breath sounds equal bilaterally. No accessory muscle use. GASTROINTESTINAL: Postoperative abdomen MUSCULOSKELETAL: No cyanosis, or edema. BACK: Nontender without obvious deformity. No CVA tenderness. A/P Assessment and Plan =====08/16/16======== //Postoperative day 0 cholecystectomy. Postoperative management as per surgical service. Pain management as per surgical service. //Possible peptic ulcer. Hemoglobin reviewed. 15.1. Stable. //Colitis. //Postoperative cholecystectomy. Performed 08/16. -Postoperative management as per surgical service. -Pain management as per surgical service. -Monitor bowel function. //Possible peptic ulcer. Acute //Possible cholecystitis. Acute. //Hematemesis -Patient with NSAID use at home. Hold here. -Nothing by mouth except meds. -IV PPI twice a day. -IV fluids for maintenance GI following. Appreciate assistance. //Chronic tobaccoism. Roughly 150 pack year history. With chronic smoker's cough. Cessation counseling provided. Cessation strongly advised. //Hypokalemia. Resolved after replacement. -08/15. Potassium 3.3. Replaced. -08/16 Potassium 3.6 normal. -Likely secondary to nausea/vomiting. - Continue to monitor //Prophylaxis. SCDs. Hold anticoagulation in setting of possible GI bleed. Discharge Planning Pending GI and general surgery clearance. Savage Vanegas MD Aug 16, 2016 16:32
--- NOTE | 2016-08-16 17:24 | TN ---
cc: AGUSTINDAILY DATE OF SURGERY 08/16/2016 PREOPERATIVE DIAGNOSIS Acute cholelithiasis, cholecystitis. POSTOPERATIVE DIAGNOSIS Acute cholelithiasis, cholecystitis. PROCEDURE Laparoscopic cholecystectomy. ANESTHESIA General. SURGEON Dr. Carlos. INDICATION This is a pleasant gentleman who was admitted to the hospital yesterday. He had severe right upper quadrant pain, Rollins sign, signs and symptomatology consistent with acute cholecystitis confirmed with imaging. Plans were made for above. PROCEDURE DETAILS The patient taken to the operating room and placed in the supine position. After anesthesia his abdomen is prepped with Betadine. Time-out was done. He is already on antibiotics. We make an incision just below the umbilicus. Veress needle was inserted, saline load test performed. Trocar was introduced. Gallbladder can be seen, it is obviously inflamed. Three other working ports are placed 5 mm below the xyphoid, 5 mm in between two previous placed ports and a third working port in the right upper quadrant. The gallbladder is grasped, it is obviously inflamed, tense, indurated, slightly gangrenous. We are able to use a combination of blunt dissection, hydrodissection and using electrocautery, dissect down identifying the cystic duct, cystic artery which were doubly ligated and transected. The gallbladder was then grasped superior and laterally identifying the edge of the gallbladder fossa and it is slowly dissected off the gallbladder fossa of the liver. Unfortunately because of the friability a small rent is made and there is a minimal amount of stones and bile spilled which is evacuated. We were able to remove this from the liver, placed in an EndoCatch and pulled out through the umbilical incision which must be elongated because of the amount of stones and induration of the gallbladder. After this was done we then placed the trocar back, removed all stones and bile. Checked our dissection site. We had excellent hemostasis without biliary leakage. Liver smooth. The surface is smooth. We then evacuate all of the irrigating solution and the CO2. The 10 mm port site that was elongated to 2 cm, is closed with interrupted Vicryl suture and the skin at all four sites closed with a 4-0 Monocryl subcuticular stitch. The patient tolerated the procedure well and had no immediate postop complications. Daily Carlos MD JDB/KK /4:49 PM /5:15 PM [email or web address]
[2016-08-16] MEDS ORDERED: DO NOT ADM ANY ANTICOAGULANT DRUGS PRN (18:45)
[2016-08-17] VITALS (7 sets, daily range): BP systolic 101–121; BP diastolic 69–81; PULSE 72–89; RESP 18–20; TEMP 96–97.4; O2SAT 91–96
[2016-08-17] MEDS: PIPERACIL-TAZO 3.375 GM PREMIX 50 ML IV SCH ×4 (00:16→23:36)
[2016-08-17 05:49] LABS: AUTOMATED NEUTROPHIL # 12.9 TH/MM3 (1.8-7.7); BASOPHIL % 0.2 % (0.0-2.0); EOSINOPHIL % 0.1 % (0.0-4.0); HEMATOCRIT 41.3 % (39.0-51.0); LYMPH % 10.6 % (9.0-44.0); LYMPHOCYTE # 1.7 TH/MM3 (1.0-4.8); MEAN CELL VOLUME 92.1 FL (80.0-100.0); MEAN CORPUSCULAR HGB CONC 33.7 % (32.0-36.0); MONO % 6.3 % (0.0-8.0); NEUT % 82.8 % (16.0-70.0); PLATELET COUNT 320 TH/MM3 (150-450); RED BLOOD COUNT 4.48 MIL/MM3 (4.50-5.90); RED CELL DISTRIBUTION WIDTH 12.9 % (11.6-17.2); WHITE BLOOD COUNT 15.6 TH/MM3 (4.0-11.0)
[2016-08-17 05:52] LABS: POTASSIUM 3.9 MEQ/L (3.5-5.1)
[2016-08-17 05:53] LABS: HEMO FLAGS AUTO DIFF
[2016-08-17 06:00] LABS: BICARBONATE 25.1 MEQ/L (21.0-32.0); MAGNESIUM 2.2 MG/DL (1.5-2.5)
[2016-08-17 06:11] LABS: INDIRECT BILIRUBIN 0.4 MG/DL (0.0-0.8); TOTAL BILIRUBIN ADULT 0.6 MG/DL (0.2-1.0)
[2016-08-17 07:29] LABS: SCAN/DIFF AUTO DIFF CONFIRMED
[2016-08-17] MEDS: 1/2 NS + KCL 20 MEQ INJ 1,000 ML IV SCH ×2 (08:40→17:58)
[2016-08-17] MEDS: PANTOPRAZOLE SODIUM 40 MG VIAL IV PUSH SCH (09:03)
[2016-08-17] MEDS: ACETAMINOPHEN/HYDROcodone 325 MG/5 MG TAB PO PRN ×4 (09:27→22:16)
--- NOTE | 2016-08-17 12:13 | HHI.PR ---
Subjective Remarks Patient reports that abdominal pain is tolerable. He did have some emesis yesterday, however says nausea is controlled currently. No flatus or bowel movement yet. Objective Vital Signs Date Time Temp Pulse Resp B/P Pulse Ox O2 Delivery O2 Flow Rate FiO2 08/17/16 08:00 97.3 79 20 121/81 95 08/17/16 08:00 92 Nasal Cannula 4.00 08/17/16 04:00 96.0 74 20 106/71 94 08/17/16 00:00 96.0 89 20 101/69 93 08/16/16 20:18 91 Nasal Cannula 4.00 08/16/16 20:00 97.0 95 20 110/73 91 08/16/16 16:50 98.8 84 16 98/64 94 08/16/16 16:35 84 16 102/71 91 08/16/16 16:20 98 16 112/67 97 08/16/16 16:05 93 16 106/76 92 08/16/16 16:00 98.0 95 20 114/83 92 08/16/16 15:50 95 16 115/73 90 08/16/16 15:35 92 16 102/79 96 08/16/16 15:32 99.0 102 14 106/67 89 Simple Mask 9 I/O 08/16/16 08/16/16 08/16/16 08/17/16 08/17/16 08/17/16 07:00 15:00 23:00 07:00 15:00 23:00 Intake Total 2865 ml 1680 ml 60 ml Output Total 450 ml 1125 ml Balance 2865 ml 1230 ml -1065 ml Intake Oral 480 ml 60 ml IV Total 2865 ml Other 1200 ml Output Urine Total 450 ml 1125 ml # Voids 1 # Bowel Movements 0 0 Result Diagram: 08/17/1651108/17/16511 Imaging Last Impressions Chest X-Ray 08/15/16444 Signed Impressions: Service Date/Time: Monday, August 15, 2016 04:54 - CONCLUSION: Normal examination. Charlie Toth MD Abdomen/Pelvis CT 08/15/16444 Signed Impressions: Service Date/Time: Monday, August 15, 2016 06:07 - CONCLUSION: Stones within each kidney. Diverticulosis of the colon. Some gallbladder wall thickening without any definite signs of surrounding inflammation. Charlie Toth MD Gall Bladder Ultrasound 08/15/16 0000 Signed Impressions: Service Date/Time: Monday, August 15, 2016 08:04 - CONCLUSION: 1. Cholelithiasis with mild diffuse gall bladder wall thickening and mild pericholecystic fluid. 1.7 x 2.0 x 1.5 cm probably adherent stone near the fundus of the gallbladder. Gallbladder is not significantly distended and there is no sonographic Rollins' s sign. Findings are most consistent with subacute/chronic cholecystitis. Recommend HIDA scan if there is concern regarding cystic duct patency and acute cholecystitis. 2. Diffusely increased hepatic echogenicity without evidence for volume loss most consistent with hepatic steatosis. 3. Small nonobstructing inferior pole right renal calculus not demonstrated on ultrasound. Ronny Lau MD Objective Remarks GENERAL: Patient sitting up in bed. Appears comfortable. Alert and oriented 3. SKIN: Warm and dry. HEAD: Normocephalic. EYES: No scleral icterus. No injection or drainage. NECK: Supple, trachea midline. No JVD. CARDIOVASCULAR: Regular rate and rhythm without murmurs, gallops, or rubs. RESPIRATORY: Breath sounds equal bilaterally. No accessory muscle use. GASTROINTESTINAL: Hypoactive bowel sounds. No tenderness to palpation. No rebound or guarding. MUSCULOSKELETAL: No cyanosis, or edema. BACK: Nontender without obvious deformity. No CVA tenderness. A/P Assessment and Plan =====08/17/16======== //Postop day 1 cholecystectomy. Continue to await return of bowel function. //Increased oxygen requirement. Patient requiring 4 L oxygen. This is likely secondary to atelectasis in patient with 150 pack year smoking history, who is splinting to avoid abdominal discomfort with breathing/coughing. Order incentive spirometry, duonebs, and Acapella. //Leukocytosis. Did have episode of emesis yesterday. Continues on Zosyn covers anaerobic bacteria in the possibility of aspiration pneumonia. No urinary symptoms. Chest x-ray pending. //Postoperative cholecystectomy. Performed 08/16. -Postoperative management as per surgical service. -Pain management as per surgical service. -Into new to Monitor bowel function. //Possible peptic ulcer. Acute //Possible cholecystitis. Acute. //Hematemesis -Patient with NSAID use at home. Hold here. -Nothing by mouth except meds. -IV PPI twice a day. -IV fluids for maintenance GI following. Appreciate assistance. Possible endoscopy when patient ready. //Chronic tobaccoism. Roughly 150 pack year history. With chronic smoker's cough. Cessation counseling provided. Cessation strongly advised. //Hypokalemia. Resolved after replacement. -08/15. Potassium 3.3. Replaced. -08/16 Potassium 3.6 normal. -Likely secondary to nausea/vomiting. - Continue to monitor //Prophylaxis. SCDs. Hold anticoagulation in setting of possible GI bleed. Discharge Planning Pending GI and general surgery clearance. Savage Vanegas MD Aug 17, 2016 12:12
[2016-08-17] MEDS: RESP: ALBUTEROL 2.5 MG/IPRATROPIUM 0.5 MG NEB (SCH) NEB ×3 (12:15→20:54)
--- NOTE | 2016-08-17 12:22 | HHI.PR ---
Subjective Subjective Notes DAILY PROGRESS NOTE FOR SURGICAL ATTENDING, DR. ABE CARLOS Patient seen at 0730 "It hurts when I cough. Last night I have right shoulder pain." Objective Vitals/I&O Vital Signs Date Time Temp Pulse Resp B/P Pulse Ox O2 Delivery O2 Flow Rate FiO2 08/17/16 12:00 97.4 87 18 114/74 94 08/17/16 08:00 Nasal Cannula 4.00 Labs Laboratory Tests Test 08/17/16 05:12 White Blood Count 15.6 Red Blood Count 4.48 Hemoglobin 13.9 Hematocrit 41.3 Mean Corpuscular Volume 92.1 Mean Corpuscular Hemoglobin 31.0 Mean Corpuscular Hemoglobin 33.7 Concent Red Cell Distribution Width 12.9 Platelet Count 320 Mean Platelet Volume 8.1 Neutrophils (%) (Auto) 82.8 Lymphocytes (%) (Auto) 10.6 Monocytes (%) (Auto) 6.3 Eosinophils (%) (Auto) 0.1 Basophils (%) (Auto) 0.2 Neutrophils # (Auto) 12.9 Lymphocytes # (Auto) 1.7 Monocytes # (Auto) 1.0 Eosinophils # (Auto) 0.0 Basophils # (Auto) 0.0 CBC Comment AUTO DIFF Differential Comment AUTO DIFF CONFIRMED Sodium Level 138 Potassium Level 3.9 Chloride Level 104 Carbon Dioxide Level 25.1 Anion Gap 9 Blood Urea Nitrogen 12 Creatinine 0.91 Estimat Glomerular Filtration 84 Rate Random Glucose 107 Calcium Level 8.2 Phosphorus Level 2.6 Magnesium Level 2.2 Total Bilirubin 0.6 Direct Bilirubin 0.2 Indirect Bilirubin 0.4 Aspartate Amino Transf 46 (AST/SGOT) Alanine Aminotransferase 50 (ALT/SGPT) Alkaline Phosphatase 62 Total Protein 6.7 Albumin 3.1 Radiology Last Impressions Chest X-Ray 08/17/16 0000 Signed Impressions: Service Date/Time: August 12:44 - CONCLUSION: No acute disease. Simone Celis Jr., MD Abdomen/Pelvis CT 08/15/16 0445 Signed Impressions: Service Date/Time: Monday, August 15, 2016 06:07 - CONCLUSION: Stones within each kidney. Diverticulosis of the colon. Some gallbladder wall thickening without any definite signs of surrounding inflammation. Charlie Toth MD Gall Bladder Ultrasound 08/15/16 0000 Signed Impressions: Service Date/Time: Monday, August 15, 2016 08:04 - CONCLUSION: 1. Cholelithiasis with mild diffuse gall bladder wall thickening and mild pericholecystic fluid. 1.7 x 2.0 x 1.5 cm probably adherent stone near the fundus of the gallbladder. Gallbladder is not significantly distended and there is no sonographic Rollins' s sign. Findings are most consistent with subacute/chronic cholecystitis. Recommend HIDA scan if there is concern regarding cystic duct patency and acute cholecystitis. 2. Diffusely increased hepatic echogenicity without evidence for volume loss most consistent with hepatic steatosis. 3. Small nonobstructing inferior pole right renal calculus not demonstrated on ultrasound. Ronny Lau MD Cardiovascular: Regular Lungs: Clear Abdomen: Other (abdomen soft; tender at incision sites; lap sites c/d/i ) Extremities: No edema A/P Problem List: (1) Acute cholecystitis (2) Abdominal pain (3) Cholelithiasis (4) Status post laparoscopic cholecystectomy Assessment and Plan 66 year old male POD1 lap tino -Tolerating regular diet -Pain controlled -VSS -Encouraged the use of IS -General Surgery clear for DC -Follow up with Dr. Carlos in about 7-10 days Problem Qualifiers (1) Abdominal pain: Qualified Code: R10.10 - Pain of upper abdomen (2) Cholelithiasis: Qualified Code: K80.12 - Calculus of gallbladder with acute on chronic cholecystitis without obstruction Tori Colin Aug 17, 2016 12:22 Abe Carlos MD Aug 17, 2016 16:04
--- NOTE | 2016-08-17 13:27 | RADHPO ---
EXAM DATE/TIME: 08/17/2016 12:44 [place] COMPARISON: CHEST SINGLE AP, August 15, 2016, 4:54. INDICATIONS : Cough. MEDICAL HISTORY : Renal calculi. Smoker. SURGICAL HISTORY : Cholecystectomy. ENCOUNTER: Subsequent ACUITY: 3 days PAIN SCORE: 7/10 LOCATION: chest FINDINGS: A single view of the chest demonstrates the lungs to be symmetrically aerated without evidence of mas s, infiltrate or effusion. The cardiomediastinal contours are unremarkable. Osseous structures are intact. CONCLUSION: No acute disease. Simone Celis Jr., MD on August 17, 2016 at 13:25 Board Certified Radiologist. This report was verified electronically.
--- NOTE | 2016-08-17 17:37 | HHI.GIFU ---
GI Follow-up Note Consult Follow-up Subjective: Patient laying in bed comfortably, no new complaints except abdominal pain Objective: PHYSICAL EXAMINATION: Vitals signs stable No fever HEENT: Pupils round and reactive to light; normocephalic; atraumatic; no jaundice. Throat is clear. NECK: Neck is supple, no JVD, no lymphadenopathy. CHEST: Chest is clear to auscultation and percussion. CARDIAC: Regular rate and rhythm with no murmur gallop or rubs. ABDOMEN: Soft, nondistended, nontender; no hepatosplenomegaly; bowel sounds are present in all four quadrants. EXTREMITIES: No clubbing, cyanosis, or edema. SKIN: Normal; no rash; no jaundice. [employer]: No focal deficits; alert and oriented times three. Available Data (labs, X- Rays, Procedues) : Last Impressions Chest X-Ray 08/17/16 0000 Signed Impressions: Service Date/Time: August 12:44 - CONCLUSION: No acute disease. Simone Celis Jr., MD Abdomen/Pelvis CT 08/15/16 0445 Signed Impressions: Service Date/Time: Monday, August 15, 2016 06:07 - CONCLUSION: Stones within each kidney. Diverticulosis of the colon. Some gallbladder wall thickening without any definite signs of surrounding inflammation. Charlie Toth MD Gall Bladder Ultrasound 08/15/16 0000 Signed Impressions: Service Date/Time: Monday, August 15, 2016 08:04 - CONCLUSION: 1. Cholelithiasis with mild diffuse gall bladder wall thickening and mild pericholecystic fluid. 1.7 x 2.0 x 1.5 cm probably adherent stone near the fundus of the gallbladder. Gallbladder is not significantly distended and there is no sonographic Rollins' s sign. Findings are most consistent with subacute/chronic cholecystitis. Recommend HIDA scan if there is concern regarding cystic duct patency and acute cholecystitis. 2. Diffusely increased hepatic echogenicity without evidence for volume loss most consistent with hepatic steatosis. 3. Small nonobstructing inferior pole right renal calculus not demonstrated on ultrasound. Ronny Lau MD Laboratory Tests Test 08/15/16 08/16/16 08/16/16 08/16/16 19:10 01:10 05:20 08:25 Hemoglobin 14.7 GM/DL 15.2 GM/DL 15.4 GM/DL 15.4 GM/DL White Blood Count 13.6 TH/MM3 Red Blood Count 5.11 MIL/MM3 Hematocrit 46.8 % Mean Corpuscular Volume 91.6 FL Mean Corpuscular Hemoglobin 30.0 PG Mean Corpuscular Hemoglobin 32.8 % Concent Red Cell Distribution Width 12.9 % Platelet Count 352 TH/MM3 Mean Platelet Volume 8.0 FL Neutrophils (%) (Auto) 78.8 % Lymphocytes (%) (Auto) 12.8 % Monocytes (%) (Auto) 7.4 % Eosinophils (%) (Auto) 0.6 % Basophils (%) (Auto) 0.4 % Neutrophils # (Auto) 10.7 TH/MM3 Lymphocytes # (Auto) 1.7 TH/MM3 Monocytes # (Auto) 1.0 TH/MM3 Eosinophils # (Auto) 0.1 TH/MM3 Basophils # (Auto) 0.1 TH/MM3 CBC Comment DIFF FINAL Differential Comment Sodium Level 136 MEQ/L Potassium Level 3.6 MEQ/L Chloride Level 102 MEQ/L Carbon Dioxide Level 25.5 MEQ/L Anion Gap 9 MEQ/L Blood Urea Nitrogen 7 MG/DL Creatinine 0.82 MG/DL Estimat Glomerular Filtration 95 ML/MIN Rate Random Glucose 114 MG/DL Calcium Level 8.1 MG/DL Total Bilirubin 0.9 MG/DL Aspartate Amino Transf 21 U/L (AST/SGOT) Alanine Aminotransferase 28 U/L (ALT/SGPT) Alkaline Phosphatase 75 U/L Total Protein 7.2 GM/DL Albumin 3.6 GM/DL Test 08/17/16 05:12 White Blood Count 15.6 TH/MM3 Red Blood Count 4.48 MIL/MM3 Hemoglobin 13.9 GM/DL Hematocrit 41.3 % Mean Corpuscular Volume 92.1 FL Mean Corpuscular Hemoglobin 31.0 PG Mean Corpuscular Hemoglobin 33.7 % Concent Red Cell Distribution Width 12.9 % Platelet Count 320 TH/MM3 Mean Platelet Volume 8.1 FL Neutrophils (%) (Auto) 82.8 % Lymphocytes (%) (Auto) 10.6 % Monocytes (%) (Auto) 6.3 % Eosinophils (%) (Auto) 0.1 % Basophils (%) (Auto) 0.2 % Neutrophils # (Auto) 12.9 TH/MM3 Lymphocytes # (Auto) 1.7 TH/MM3 Monocytes # (Auto) 1.0 TH/MM3 Eosinophils # (Auto) 0.0 TH/MM3 Basophils # (Auto) 0.0 TH/MM3 CBC Comment AUTO DIFF Differential Comment AUTO DIFF CONFIRMED Sodium Level 138 MEQ/L Potassium Level 3.9 MEQ/L Chloride Level 104 MEQ/L Carbon Dioxide Level 25.1 MEQ/L Anion Gap 9 MEQ/L Blood Urea Nitrogen 12 MG/DL Creatinine 0.91 MG/DL Estimat Glomerular Filtration 84 ML/MIN Rate Random Glucose 107 MG/DL Calcium Level 8.2 MG/DL Phosphorus Level 2.6 MG/DL Magnesium Level 2.2 MG/DL Total Bilirubin 0.6 MG/DL Direct Bilirubin 0.2 MG/DL Indirect Bilirubin 0.4 MG/DL Aspartate Amino Transf 46 U/L (AST/SGOT) Alanine Aminotransferase 50 U/L (ALT/SGPT) Alkaline Phosphatase 62 U/L Total Protein 6.7 GM/DL Albumin 3.1 GM/DL Allergies Coded Allergies Type Severity Reaction Last Updated Verified No Known Allergies 08/15/16 Yes Active Scripts Medications Dose Route/Sig Days Date Category Flexeril (Cyclobenzaprine HCl) 10 Mg Tab 10 Mg PO Q8HPRN 04/17/11 Rx Deltasone (Prednisone) 20 Mg Tab 20 Mg PO BID 04/17/11 Rx No Current Meds (Miscellaneous Medication) [facility] 11/12/06 Reported ASSESSMENT/PLAN: Seen and examined , recovering from surgery. Needs egd/ colonoscopy. Stressed to him the importance of these tests. Not ready to do the prep at this time.Please schedule fu with gi in 1 week after discharge to pursue these tests. He voices understanding. WIll sign off. Thank you It was a pleasure seeing Yasmany Diego Thank you for this consult. Entered by: Isai Gill MD Aug 17, 2016 17:37
[2016-08-17] MEDS ORDERED: DOCUSATE SODIUM 50 MG/SENNA 8.6 MG TAB PO ONE (23:00)
[2016-08-17] MEDS ORDERED: MAGNESIUM HYDROXIDE SUSP 30 ML CUP PO ONE (23:00)
[2016-08-18] VITALS: BP 104/71; PULSE 69; RESP 20; TEMP 96.5; O2SAT 92
[2016-08-18] MEDS: RESP: ALBUTEROL 2.5 MG/IPRATROPIUM 0.5 MG NEB (SCH) NEB ×3 (03:43→15:38)
[2016-08-18] MEDS: ACETAMINOPHEN/HYDROcodone 325 MG/5 MG TAB PO PRN ×2 (06:21→15:02)
[2016-08-18] MEDS: 1/2 NS + KCL 20 MEQ INJ 1,000 ML IV SCH (06:22)
[2016-08-18] MEDS: PANTOPRAZOLE SODIUM 40 MG VIAL IV PUSH SCH (07:58)
[2016-08-18] MEDS: PIPERACIL-TAZO 3.375 GM PREMIX 50 ML IV SCH ×2 (07:59→15:02)
[2016-08-18 08:00] VITALS: BP 147/99; PULSE 62; RESP 20; TEMP 95.8; O2SAT 94
[2016-08-18 09:44] VITALS: O2SAT 94
[2016-08-18] MEDS ORDERED: AUGM875T3 PO (09:51)
[2016-08-18] MEDS ORDERED: HYDR-3516 PO (09:51)
[2016-08-18 12:00] VITALS: BP 128/95; PULSE 78; RESP 19; TEMP 95.6; O2SAT 91
[2016-08-18] MEDS ORDERED: VENTAER INH (12:02)
--- NOTE | 2016-08-18 12:07 | HHI.PR ---
Subjective Remarks Patient reports abdominal pain is controlled. Denies any chest pain or shortness breath. His breathing had been a little difficult due to abdominal distention. He does say that nebulizations have helped his breathing. Still no bowel movement. He would like to have a bowel movement before going home. Objective Vital Signs Date Time Temp Pulse Resp B/P Pulse Ox O2 Delivery O2 Flow Rate FiO2 08/18/16 09:44 94 21 08/18/16 08:00 95.8 62 20 147/99 94 08/18/16 00:00 96.5 69 20 104/71 92 08/17/16 23:16 18 08/17/16 20:54 94 Nasal Cannula 2.00 08/17/16 20:00 96.1 74 18 105/75 96 08/17/16 16:00 96.8 72 18 112/70 91 I/O 08/17/16 08/17/16 08/17/16 08/18/16 08/18/16 08/18/16 07:00 15:00 23:00 07:00 15:00 23:00 Intake Total 60 ml 950 ml 1020 ml 240 ml Output Total 1125 ml 350 ml 900 ml Balance -1065 ml 950 ml 670 ml -660 ml Intake Oral 60 ml 950 ml 240 ml IV Total 1020 ml Output Urine Total 1125 ml 350 ml 900 ml # Voids 1 6 # Bowel Movements 0 0 Result Diagram: 08/17/1612 08/17/16 0512 Objective Remarks GENERAL: Patient sitting up in bed. Appears comfortable. Alert and oriented 3. SKIN: Warm and dry. HEAD: Normocephalic. EYES: No scleral icterus. No injection or drainage. NECK: Supple, trachea midline. No JVD. CARDIOVASCULAR: Regular rate and rhythm without murmurs, gallops, or rubs. RESPIRATORY: Breath sounds equal bilaterally. No accessory muscle use. GASTROINTESTINAL: Positive bowel sounds. Distended abdomen, not tense. No tenderness to palpation. No rebound or guarding. MUSCULOSKELETAL: No cyanosis, or edema. BACK: Nontender without obvious deformity. No CVA tenderness. A/P Assessment and Plan =====08/17/16======== //Postop day 2 cholecystectomy. Patient doing well, with the exception of awaiting return of bowel function. Status post laxatives. Fleet enema ordered //Increased oxygen requirement. Resolved on nebs, incentive spirometry, Acapella. Patient instructed to continue at home, with albuterol inhaler as needed. Patient with suspected COPD from 150 pack year history of smoking. //Leukocytosis. Still elevated 15. Possibly secondary to atelectasis. Chest x -ray with no acute findings. Continue incentive spirometry and Acapella. //Possible gastric ulcer, rectal mass. Patient has refused colonoscopy. Will follow up with GI as outpatient. //Postoperative cholecystectomy. Performed 08/16. -Postoperative management as per surgical service. -Pain management as per surgical service. -cont to Monitor bowel function. //Possible peptic ulcer. Acute //Possible cholecystitis. Acute. //Hematemesis -Patient with NSAID use at home. Hold here. -Nothing by mouth except meds. -IV PPI twice a day. -IV fluids for maintenance GI following. Appreciate assistance. Possible endoscopy when patient ready. //Chronic tobaccoism. Roughly 150 pack year history. With chronic smoker's cough. Cessation counseling provided. Cessation strongly advised. //Hypokalemia. Resolved after replacement. -08/15. Potassium 3.3. Replaced. -08/16 Potassium 3.6 normal. -Likely secondary to nausea/vomiting. - Continue to monitor //Prophylaxis. SCDs. Hold anticoagulation in setting of possible GI bleed. Discharge Planning She waiting a bowel movement. Will follow up with GI and general surgery as outpatient. Savage Vanegas MD Aug 18, 2016 12:07
--- NOTE | 2016-08-18 12:12 | HHI.DS ---
Discharge Summary Admission Date Aug 15, 2016 at 07:51 Discharge Date: Aug 18, 2016 Admitting Diagnosis Abdominal pain; rectal mass; gibleed (1) Acute cholecystitis ICD Code: K81.0 (2) Rectal mass ICD Code: K62.9 Procedures Cholecystectomy 08/16. Brief History - From Admission 66-year-old male with history of chronic tobaccoism, chronic low back pain on Aleve 2 tablets in the morning, 1 tablet at night, who presents with constant sharp epigastric pain radiating to bilateral flanks since 30 minutes past midnight this morning. He denies any fevers or chills, however has had one episode of light blood vomiting last night. He also reports black tarry stools for months, however he says this may be secondary to the Pepto-Bismol he takes. He does report chronic acid reflux and epigastric pain for which he takes Prilosec, Pepto-Bismol as needed. He reports that abdominal pain has improved slightly. He reports that nausea has resolved. CBC/BMP: 08/17/16 0512 08/17/16 0512 Significant Findings Laboratory Tests Test 08/16/16 08/17/16 05:20 05:12 White Blood Count 13.6 TH/MM3 15.6 TH/MM3 (4.0-11.0) (4.0-11.0) Neutrophils (%) (Auto) 78.8 % 82.8 % (16.0-70.0) (16.0-70.0) Neutrophils # (Auto) 10.7 TH/MM3 12.9 TH/MM3 (1.8-7.7) (1.8-7.7) Monocytes # (Auto) 1.0 TH/MM3 1.0 TH/MM3 (0-0.9) (0-0.9) Random Glucose 114 MG/DL 107 MG/DL (74-106) (74-106) Calcium Level 8.1 MG/DL 8.2 MG/DL (8.5-10.1) (8.5-10.1) Red Blood Count 4.48 MIL/MM3 (4.50-5.90) Estimat Glomerular Filtration 84 ML/MIN (>89) Rate Aspartate Amino Transf 46 U/L (15-37) (AST/SGOT) Albumin 3.1 GM/DL (3.4-5.0) Imaging Last Impressions Chest X-Ray 08/17/16 0000 Signed Impressions: Service Date/Time: August 12:44 - CONCLUSION: No acute disease. Simone Celis Jr., MD Abdomen/Pelvis CT 08/15/16 0445 Signed Impressions: Service Date/Time: Monday, August 15, 2016 06:07 - CONCLUSION: Stones within each kidney. Diverticulosis of the colon. Some gallbladder wall thickening without any definite signs of surrounding inflammation. Charlie Toth MD Gall Bladder Ultrasound 08/15/16 0000 Signed Impressions: Service Date/Time: Monday, August 15, 2016 08:04 - CONCLUSION: 1. Cholelithiasis with mild diffuse gall bladder wall thickening and mild pericholecystic fluid. 1.7 x 2.0 x 1.5 cm probably adherent stone near the fundus of the gallbladder. Gallbladder is not significantly distended and there is no sonographic Rollins' s sign. Findings are most consistent with subacute/chronic cholecystitis. Recommend HIDA scan if there is concern regarding cystic duct patency and acute cholecystitis. 2. Diffusely increased hepatic echogenicity without evidence for volume loss most consistent with hepatic steatosis. 3. Small nonobstructing inferior pole right renal calculus not demonstrated on ultrasound. Ronny Lau MD Hospital Course Imaging showed cholecystitis, with thickened gallbladder wall. She was started on broad-spectrum antibiotics for treatment of cholecystitis. General surgery performed cholecystectomy on 08/16. Patient tolerated the procedure well. We'll await bowel movement prior to discharge. Patient also reported hematemesis, and was also found to have rectal mass on examination by ED physician. no further episodes of hematemesis. Patient has declined panendoscopy, but will follow-up with gastroenterology as outpatient for panendoscopy. =====08/17/16======== //Postop day 2 cholecystectomy. Patient doing well, with the exception of awaiting return of bowel function. Status post laxatives. Fleet enema ordered //Increased oxygen requirement. Resolved on nebs, incentive spirometry, Acapella. Patient instructed to continue at home, with albuterol inhaler as needed. Patient with suspected COPD from 150 pack year history of smoking. //Leukocytosis. Still elevated 15. Possibly secondary to atelectasis. Chest x -ray with no acute findings. Continue incentive spirometry and Acapella. //Possible gastric ulcer, rectal mass. Patient has refused colonoscopy. Will follow up with GI as outpatient. //Postoperative cholecystectomy. Performed 08/16. -Postoperative management as per surgical service. -Pain management as per surgical service. -cont to Monitor bowel function. //Possible peptic ulcer. Acute //Possible cholecystitis. Acute. //Hematemesis -Patient with NSAID use at home. Hold here. -Nothing by mouth except meds. -IV PPI twice a day. -IV fluids for maintenance GI following. Appreciate assistance. Possible endoscopy when patient ready. //Chronic tobaccoism. Roughly 150 pack year history. With chronic smoker's cough. Cessation counseling provided. Cessation strongly advised. //Hypokalemia. Resolved after replacement. -08/15. Potassium 3.3. Replaced. -08/16 Potassium 3.6 normal. -Likely secondary to nausea/vomiting. - Continue to monitor //Prophylaxis. SCDs. Hold anticoagulation in setting of possible GI bleed. Pt Condition on Discharge: Good Discharge Disposition: Discharge Home Discharge Time: > 30 minutes Discharge Instructions DIET: Follow Instructions for: As Tolerated, No Restrictions Activities you can perform: Weight Bearing as [place], See Additionl Instruction Other Activity Instructions: no lifting anything over 10 pounds. Follow up Referrals: Gastroenterology - 1 Week with Rey Gold MD PCP Follow-up - 1 Week Surgical - 10 Days with Abe Carlos MD New Medications: Albuterol 18 GM Inh (Ventolin Hfa 18 GM Inh) 90 Mcg/Act Aer 2 PUFF INH Q4-6H PRN SHORTNESS OF BREATH #1 Ref 0 INHALER Amoxicillin-Clavulanate (Augmentin) 875-125 Mg Tab 1 TAB PO BID Infection #14 Ref 0 TAB Hydrocodone-Acetaminophen (Hydrocodone-Acetaminophen) 5-325 mg Tab 1 TAB PO Q4H PRN PAIN SCALE 1 TO 10 #42 TAB Discontinued Medications: Cyclobenzaprine Hcl (Flexeril) 10 Mg Tab 10 MG PO Q8HPRN #15 Miscellaneous (No Current Meds) Misc Prednisone (Deltasone) 20 Mg Tab 20 MG PO BID #10 Savage Vanegas MD Aug 18, 2016 12:12
[2016-08-18] MEDS ORDERED: SOD PHOSPHATE/SOD BIPHOSPHATE (ADULT) ENEMA 133ML RECTAL ONE (15:00)
[2016-08-18 16:00] VITALS: BP 133/91; PULSE 73; RESP 20; TEMP 97.1; O2SAT 92
== END 2016-08-18 19:56 | disposition home or self-care (01) | DRG 418 ==
LOC: PHED 04:41 → PHEDA 07:51 → PH3B 12:36
PROVIDERS: ADMIT Internal Medicine; ATTEND Internal Medicine
PROC: 0FT44ZZ Resection of Gallbladder, Percutaneous Endoscopic Approach (ICD-10-PCS; principal; 2016-08-16 13:52)
DX: K80.12 Calculus of gallbladder with acute and chronic cholecystitis without obstruction (principal); K92.2 Gastrointestinal hemorrhage, unspecified; K76.0 Fatty (change of) liver, not elsewhere classified; E87.6 Hypokalemia; K62.9 Disease of anus and rectum, unspecified; F17.210 Nicotine dependence, cigarettes, uncomplicated; G89.29 Other chronic pain; K21.9 Gastro-esophageal reflux disease without esophagitis; J41.0 Simple chronic bronchitis; K57.30 Diverticulosis of large intestine without perforation or abscess without bleeding; K52.9 Noninfective gastroenteritis and colitis, unspecified; M25.511 Pain in right shoulder; Z87.442 Personal history of urinary calculi
CPT/HCPCS: 71010; 74177; 76705; 80053; 80069; 80076; 81001; 83605; 83690; 83735; 84484; 85018; 85025; 85610; 85730; 86850; 86900; 86901; 88304; 93005; 94150; 94620; 94640; 94667; 94668; 96361; 96374; 96375; C9113; J0131; J1170; J2250; J2270; J2405; J2543; J3010; J3480; J7030; Q9967